=== PATIENT | male | born 1995 | race Caucasian/White ===

== ENCOUNTER 2022-03-03 09:11 | Inpatient (IN) | payer BC ==
[2022-03-03] MEDS ORDERED: Levofloxacin 500 mg/D5W 100 ml Premix Bag ONE (09:21)
[2022-03-03 09:36] LABS: #Basophils 0.2 thou/uL (0.0-0.2); #Eosinphils 0.7 thou/uL (0.0-0.7); #Lymphocytes 5.1 thou/uL (1.20-3.40); #Monocytes 1.3 thou/uL (0.11-0.59); %Basophils 1.6 % (0.0-1.0); %Eosinophils 4.9 % (0.0-10.0); %Lymphocytes 35.6 % (21.0-51.0); %Neutrophils 48.8 % (42.0-75.0); Mean Corpuscular HGB CONC 33.4 g/dL (32.0-36.0); Mean Corpuscular Hemoglobin 30.8 pg (27.0-31.0); Mean Corpuscular Volume 92.2 fl (78.0-98.0); Mean Platelet Volume 8.5 fL (7.4-10.4); Platelet Count 231 thou/uL (130-400); RBC Distribution Width 11.9 % (11.5-14.5); Red Blood Cell (RBC) Count 4.54 mill/uL (4.70-6.10); White Blood Cell (WBC) Count 14.3 thou/uL (4.8-10.8)
[2022-03-03] MEDS ORDERED: Rocuronium Bromide 10 MG/ML (10ML VIAL) ONE (09:44)
[2022-03-03 10:04] LABS: ALT (SGPT) 14 U/L (8-55); AST (SGOT) 15 U/L (5-34); Alkaline Phosphatase 70 U/L (40-110); Anion Gap 12 mmol/L (10-20); BUN (Urea Nitrogen) 17 mg/dL (8.9-20.6); Bilirubin, Total 0.7 mg/dL (0.2-1.2); Calc. Creatinine Clearance 0 mL/min (70-130); Calcium 8.5 mg/dL (7.8-10.44); Carbon Dioxide 24 mmol/L (22-29); Chloride 107 mmol/L (98-107); Estimated GFR 122; Globulin 2.3 g/dL (2.4-3.5); Glucose 138 mg/dL (70-105); Potassium 3.3 mmol/L (3.5-5.1); Protein, Total 6.3 g/dL (6.0-8.3); Sodium 140 mmol/L (136-145)
[2022-03-03 10:08] LABS: Analyzer IN Cardio ER; Calcium, Ionized (arterial) 1.14 mmol/L (1.12-1.30); Carboxyhemoglobin (COHb) 2.5 gm% (0.0-3.0); Hemoglobin (Hb) 14.4 g/dL (14.0-18.0); O2 Tension (PaO2), arterial 166.8 mmHg (80.0-100.0); Puncture Site RRA; pH, Arterial 7.28 (7.35-7.45)
[2022-03-03] MEDS ORDERED: Ketamine 50 MG/ML (10ML VIAL) ONE (10:18)
[2022-03-03] MEDS ORDERED: Boostrix 0.5 ML (Tdap) VIAL (>/=7 yrs of age) ONE (10:20)
[2022-03-03] MEDS ORDERED: TETANUS, DIPHTHERIA TOX,ADULT (TDVAX) 0.5 ML VIAL IM ONE (10:23)
[2022-03-03] MEDS ORDERED: Dextrose 50% Abboject 50 ML SYRINGE SLOW IVP PRN (10:23)
[2022-03-03] MEDS ORDERED: Dextrose 5% in Water 1,000 ML IV PRN (10:23)
[2022-03-03] MEDS ORDERED: Insulin Regular 300 UNITS/3 ML VIAL SC PRN (10:23)
[2022-03-03] MEDS ORDERED: hydrALAZINE 20 MG/ML VIAL SLOW IVP PRN (10:23)
[2022-03-03] MEDS ORDERED: Ventilator Sedation Protocol FS PRN (10:30)
[2022-03-03] MEDS ORDERED: FENTANYL 50 MCG/ML 1 ML VIAL ONE (10:33)
[2022-03-03 10:56] LABS: Lactic Acid 1.2 mmol/L (0.5-2.2)
[2022-03-03 11:00] LABS: Magnesium 1.8 mg/dL (1.6-2.6); Phosphorus 4.5 mg/dL (2.3-4.7)
[2022-03-03] MEDS ORDERED: Propofol BOLUS 1,000 MG/100 ML VIAL IV PRN (11:00)
[2022-03-03] MEDS ORDERED: Morphine 4 MG/ML VIAL SLOW IVP PRN (11:00)
[2022-03-03] MEDS ORDERED: Fentanyl CADD 100 ML IV SCH (11:00)
[2022-03-03] MEDS ORDERED: Fentanyl BOLUS 250 ML IVPB PRN (11:00)
[2022-03-03 11:18] LABS: INR-International Normal Ratio 1.1; PTT 24.7 sec (22.9-36.1); Prothrombin Time 14.7 sec (12.0-14.7)
[2022-03-03] MEDS: Sodium Chloride 0.9% 1,000 ML IV SCH ×2 (11:20→20:31)
[2022-03-03] MEDS ORDERED: Electrolyte Replacement Protocol 1 EACH FS SCH (11:56)
[2022-03-03 12:03] LABS: Actual Bicarbonate (HCO3a) 21.7 mEq/L (22-28); Base Excess (BEa) -2.5 mEq/L (-2.0 to +3.0); CO2 Tension 35.6 mmHg (35.0-45.0); Calcium, Ionized (arterial) 1.11 mmol/L (1.12-1.30); Carboxyhemoglobin (COHb) 1.6 gm% (0.0-3.0); Hemoglobin (Hb) 13.1 g/dL (14.0-18.0); O2 Tension (PaO2), arterial 92.9 mmHg (80.0-100.0); Potassium - ABG Lab 3.95 mmol/L (3.70-5.30)
[2022-03-03 12:04] LABS: Puncture Site RRA
[2022-03-03] MEDS ORDERED: Magnesium 2 GM/50 ML(in water) 2 GM in Premix Bag 1 BAG IVPB SCH (12:15)
[2022-03-03] MEDS: Propofol 1,000 MG/100 ML VIAL IV PRN ×3 (12:39→20:57)
[2022-03-03] MEDS ORDERED: Calcium Chloride 13.6 MEQ in Sodium Chloride 0.9% 100 ML IVPB SCH (13:30)
[2022-03-03] MEDS: Potassium Chloride 20 MEQ in Premix Bag 1 BAG IVPB SCH ×2 (13:35→14:45)
[2022-03-03] MEDS: Clindamycin/D5W 900 MG in Premix Bag 1 BAG IVPB SCH ×2 (13:36→20:58)
[2022-03-03] MEDS ORDERED: Iopamidol-370 76% 500 ML 1 ML ONE (13:52)
[2022-03-03 18:07] LABS: Bacteria/HPF None Seen HPF (None Seen); Bilirubin Negative (Negative); Blood, Urine Negative (Negative); Clarity Clear (Clear); Glucose, Urine (Dipstick) Normal (Negative); Ketone, Urine Negative (Negative); Leukocyte Negative Leu/uL (Negative); Nitrite Negative (Negative); Protein, Urine (Dipstick) Negative (Neg-Trace); RBC/HPF 0-3 HPF (0-3); Squamous Epithelial None Seen HPF (0-3); Urobilinogen Normal mg/dL (Less than 2); WBC/HPF 0-3 HPF (0-3); pH, Urine 6.5 (5.0-9.0)
[2022-03-03 18:09] LABS: Specific Gravity, Urine 1.048 (1.002-1.036)
[2022-03-03 18:10] LABS: Urine Culture Reflex No No
[2022-03-03 18:12] LABS: Amphetamine Detected (NotDetected); Barbiturates Screen Not Detected (NotDetected); Benzodiazepine Screen Detected (NotDetected); Cocaine Metabolite Screen Detected (NotDetected); Methadone Not Detected (NotDetected); Methamphetamine Detected (NotDetected); Opiate Screen Detected (NotDetected); Oxycodone Screen Not Detected (NotDetected); Phencyclidine (PCP) Not Detected (NotDetected); THC/Cannabinoid Screen Detected (NotDetected); Tricyclic Screen Not Detected (NotDetected)
[2022-03-03] MEDS: Famotidine/PF 20 mg/2ml Vial SLOW IVP SCH (20:58)
[2022-03-03 21:17] LABS: Potassium 3.8 mmol/L (3.5-5.1)
[2022-03-04] MEDS: Midazolam HCl 2 mg/2 ml Vial SLOW IVP PRN ×8 (00:43→18:58)
[2022-03-04] MEDS ORDERED: Sterile Water 10 ML ONE (01:00)
[2022-03-04] MEDS: Vecuronium 10 MG VIAL IVP PRN ×12 (01:01→23:54)
[2022-03-04] MEDS: Propofol 1,000 MG/100 ML VIAL IV PRN ×4 (02:45→21:48)
[2022-03-04] MEDS: Fentanyl CADD 100 ML IV SCH ×2 (03:13→17:35)
[2022-03-04] MEDS: Sodium Chloride 0.9% 1,000 ML IV SCH ×3 (03:17→20:41)
[2022-03-04 04:35] LABS: Anion Gap 14 mmol/L (10-20); BUN (Urea Nitrogen) 12 mg/dL (8.9-20.6); Calc. Creatinine Clearance 164 mL/min (70-130); Carbon Dioxide 18 mmol/L (22-29); Chloride 110 mmol/L (98-107); Estimated GFR 125; Glucose 72 mg/dL (70-105); Phosphorus 3.4 mg/dL (2.3-4.7); Potassium 4.5 mmol/L (3.5-5.1); Sodium 137 mmol/L (136-145)
[2022-03-04 04:38] LABS: #Basophils 0.1 thou/uL (0.0-0.2); #Eosinphils 0.3 thou/uL (0.0-0.7); #Lymphocytes 2.2 thou/uL (1.20-3.40); #Monocytes 1.1 thou/uL (0.11-0.59); #Neutrophils 4.5 thou/uL (1.40-6.50); %Basophils 0.8 % (0.0-1.0); %Eosinophils 3.6 % (0.0-10.0); %Lymphocytes 27.1 % (21.0-51.0); %Neutrophils 55.5 % (42.0-75.0); Hemoglobin 12.8 g/dL (14.0-18.0); Mean Corpuscular HGB CONC 31.5 g/dL (32.0-36.0); Mean Corpuscular Hemoglobin 29.7 pg (27.0-31.0); Mean Corpuscular Volume 94.3 fl (78.0-98.0); Mean Platelet Volume 9.7 fL (7.4-10.4); Platelet Count 120 thou/uL (130-400); White Blood Cell (WBC) Count 8.1 thou/uL (4.8-10.8)
[2022-03-04] MEDS ORDERED: Dexamethasone 4 mg/ml Vial SLOW IVP SCH (07:15)
[2022-03-04] MEDS: Clindamycin/D5W 900 MG in Premix Bag 1 BAG IVPB SCH ×3 (07:15→21:12)
[2022-03-04] MEDS: Famotidine/PF 20 mg/2ml Vial SLOW IVP SCH ×2 (07:16→20:38)
[2022-03-04 07:54] LABS: Actual Bicarbonate (HCO3a) 21.8 mEq/L (22-28); Base Excess (BEa) -0.8 mEq/L (-2.0 to +3.0); CO2 Tension 30.1 mmHg (35.0-45.0); Calcium, Ionized (arterial) 1.12 mmol/L (1.12-1.30); Hemoglobin (Hb) 12.3 g/dL (14.0-18.0); O2 Tension (PaO2), arterial 108.1 mmHg (80.0-100.0); Potassium - ABG Lab 3.57 mmol/L (3.70-5.30); pH, Arterial 7.48 (7.35-7.45)
[2022-03-04 07:58] LABS: ALV-art Gradient 139.475 mmHg (0-20); Puncture Site RRA
[2022-03-04] MEDS ORDERED: Magnesium 2 GM/50 ML(in water) 2 GM in Premix Bag 1 BAG IVPB SCH (08:00)
[2022-03-05] MEDS: Midazolam HCl 2 mg/2 ml Vial SLOW IVP PRN ×11 (01:24→23:58)
[2022-03-05] MEDS: Vecuronium 10 MG VIAL IVP PRN ×13 (01:25→21:30)
[2022-03-05] MEDS: Propofol 1,000 MG/100 ML VIAL IV PRN ×4 (03:03→14:15)
[2022-03-05 04:22] LABS: #Eosinphils 0.1 thou/uL (0.0-0.7); #Lymphocytes 1.6 thou/uL (1.20-3.40); #Monocytes 1.3 thou/uL (0.11-0.59); #Neutrophils 6.2 thou/uL (1.40-6.50); %Basophils 0.3 % (0.0-1.0); %Eosinophils 0.8 % (0.0-10.0); %Lymphocytes 16.9 % (21.0-51.0); %Monocytes 14.7 % (0.0-10.0); %Neutrophils 67.4 % (42.0-75.0); Hemoglobin 12.5 g/dL (14.0-18.0); Mean Corpuscular HGB CONC 32.1 g/dL (32.0-36.0); Mean Corpuscular Hemoglobin 30.2 pg (27.0-31.0); Mean Corpuscular Volume 94.1 fl (78.0-98.0); Mean Platelet Volume 9.3 fL (7.4-10.4); Platelet Count 151 thou/uL (130-400); Red Blood Cell (RBC) Count 4.14 mill/uL (4.70-6.10); White Blood Cell (WBC) Count 9.1 thou/uL (4.8-10.8)
[2022-03-05] MEDS: Sodium Chloride 0.9% 1,000 ML IV SCH ×3 (04:23→21:46)
[2022-03-05 04:40] LABS: Anion Gap 15 mmol/L (10-20); BUN (Urea Nitrogen) 8 mg/dL (8.9-20.6); Calc. Creatinine Clearance 182 mL/min (70-130); Calcium 8.7 mg/dL (7.8-10.44); Carbon Dioxide 19 mmol/L (22-29); Chloride 110 mmol/L (98-107); Estimated GFR 129; Glucose 73 mg/dL (70-105); Magnesium 2.1 mg/dL (1.6-2.6); Potassium 4.6 mmol/L (3.5-5.1); Sodium 139 mmol/L (136-145)
[2022-03-05] MEDS: Clindamycin/D5W 900 MG in Premix Bag 1 BAG IVPB SCH ×3 (06:21→22:54)
[2022-03-05] MEDS ORDERED: Fentanyl CADD 100 ML ONE ×2 (07:22→22:38)
[2022-03-05] MEDS ORDERED: Sterile Water 0 ML ONE (07:26)
[2022-03-05] MEDS: Fentanyl CADD 100 ML IV SCH ×2 (07:36→22:43)
[2022-03-05] MEDS: Famotidine/PF 20 mg/2ml Vial SLOW IVP SCH ×2 (08:59→19:56)
[2022-03-05] MEDS ORDERED: fentaNYL PF 100 MCG/2 ML SYRINGE ONE (15:40)
[2022-03-05] MEDS ORDERED: Chlorhexidine Gluconate 15 ML UDCUP SSP ONE ×2 (16:14→17:48)
[2022-03-05] MEDS ORDERED: Bupivacaine HCl 0.5%/Epinephrine 1:200,000/PF 30 ml Vial ONE (16:14)
[2022-03-05] MEDS ORDERED: Lidocaine 2% PF 5 ML VIAL ONE (16:14)
[2022-03-05] MEDS ORDERED: Rocuronium Bromide 10 MG/ML (10ML VIAL) ONE (16:25)
[2022-03-05] MEDS ORDERED: PROPOFOL 200 MG/20 ML VIAL ONE (16:25)
[2022-03-05] MEDS ORDERED: PHENYLEPHRINE-NS 100 MCG/ML 10 ML SYRINGE ONE (16:25)
[2022-03-05] MEDS ORDERED: Bacitracin Zinc Ointment 30 gm TUBE ONE (17:09)
[2022-03-05] MEDS ORDERED: Midazolam HCl 2 mg/2 ml Vial ONE (17:52)
[2022-03-05] MEDS ORDERED: Midazolam HCl 2 mg/2 ml Vial SLOW IVP SCH (22:30)
[2022-03-05 23:25] LABS: Actual Bicarbonate (HCO3a) 24.5 mEq/L (22-28); Base Excess (BEa) -0.7 mEq/L (-2.0 to +3.0); CO2 Tension 42.4 mmHg (35.0-45.0); Calcium, Ionized (arterial) 1.12 mmol/L (1.12-1.30); Carboxyhemoglobin (COHb) 0.4 gm% (0.0-3.0); Hemoglobin (Hb) 13.1 g/dL (14.0-18.0); O2 Tension (PaO2), arterial 62.7 mmHg (80.0-100.0); Potassium - ABG Lab 3.59 mmol/L (3.70-5.30); pH, Arterial 7.38 (7.35-7.45)
[2022-03-05 23:28] LABS: Puncture Site RRA
[2022-03-05 23:32] LABS: #Monocytes 1.2 thou/uL (0.11-0.59); #Neutrophils 9.8 thou/uL (1.40-6.50); %Basophils 0.1 % (0.0-1.0); %Eosinophils 0.4 % (0.0-10.0); %Monocytes 9.7 % (0.0-10.0); %Neutrophils 81.8 % (42.0-75.0); Hemoglobin 12.8 g/dL (14.0-18.0); Mean Corpuscular HGB CONC 32.5 g/dL (32.0-36.0); Mean Corpuscular Hemoglobin 30.5 pg (27.0-31.0); Mean Platelet Volume 8.4 fL (7.4-10.4); Platelet Count 154 thou/uL (130-400); RBC Distribution Width 11.8 % (11.5-14.5); Red Blood Cell (RBC) Count 4.21 mill/uL (4.70-6.10)
[2022-03-05 23:44] LABS: Lactic Acid 3.1 mmol/L (0.5-2.2)
[2022-03-05 23:47] LABS: Anion Gap 16 mmol/L (10-20); BUN (Urea Nitrogen) 6 mg/dL (8.9-20.6); Calc. Creatinine Clearance 158 mL/min (70-130); Calcium 8.4 mg/dL (7.8-10.44); Carbon Dioxide 20 mmol/L (22-29); Chloride 107 mmol/L (98-107); Estimated GFR 127; Glucose 104 mg/dL (70-105); Magnesium 1.6 mg/dL (1.6-2.6); Potassium 3.7 mmol/L (3.5-5.1); Sodium 139 mmol/L (136-145)
[2022-03-06] MEDS: Ondansetron PF 4 MG/2 ML Vial IVP PRN (00:08)
[2022-03-06] MEDS ORDERED: Magnesium 2 GM/50 ML(in water) 2 GM in Premix Bag 1 BAG IVPB SCH (00:30)
[2022-03-06] MEDS ORDERED: Lactated Ringer's 1,000 ML IV SCH (00:30)
[2022-03-06] MEDS: Midazolam HCl 2 mg/2 ml Vial SLOW IVP PRN ×4 (00:46→17:25)
[2022-03-06] MEDS: Propofol 1,000 MG/100 ML VIAL IV PRN ×3 (03:41→13:23)
[2022-03-06 04:01] LABS: #Eosinphils 0.1 thou/uL (0.0-0.7); #Lymphocytes 1.1 thou/uL (1.20-3.40); #Monocytes 0.7 thou/uL (0.11-0.59); #Neutrophils 7.9 thou/uL (1.40-6.50); %Basophils 0.4 % (0.0-1.0); %Eosinophils 0.7 % (0.0-10.0); %Monocytes 7.5 % (0.0-10.0); %Neutrophils 80.4 % (42.0-75.0); Hemoglobin 11.3 g/dL (14.0-18.0); Mean Corpuscular HGB CONC 33.5 g/dL (32.0-36.0); Mean Corpuscular Hemoglobin 31.6 pg (27.0-31.0); Mean Corpuscular Volume 94.3 fl (78.0-98.0); Platelet Count 152 thou/uL (130-400); RBC Distribution Width 11.5 % (11.5-14.5); Red Blood Cell (RBC) Count 3.58 mill/uL (4.70-6.10); White Blood Cell (WBC) Count 9.8 thou/uL (4.8-10.8)
[2022-03-06 04:20] LABS: Phosphorus 1.8 mg/dL (2.3-4.7)
[2022-03-06 04:21] LABS: Anion Gap 9 mmol/L (10-20); BUN (Urea Nitrogen) 5 mg/dL (8.9-20.6); Calc. Creatinine Clearance 158 mL/min (70-130); Calcium 8.2 mg/dL (7.8-10.44); Carbon Dioxide 26 mmol/L (22-29); Chloride 106 mmol/L (98-107); Estimated GFR 127; Glucose 98 mg/dL (70-105); Magnesium 1.9 mg/dL (1.6-2.6); Potassium 3.5 mmol/L (3.5-5.1); Sodium 137 mmol/L (136-145)
[2022-03-06] MEDS: PHOS-NAK 1 PKT PACK PO SCH ×2 (05:10→09:48)
[2022-03-06] MEDS: Sodium Chloride 0.9% 1,000 ML IV SCH ×2 (05:34→18:08)
[2022-03-06] MEDS ORDERED: Fentanyl CADD 100 ML ONE ×2 (05:38→16:00)
[2022-03-06] MEDS: Clindamycin/D5W 900 MG in Premix Bag 1 BAG IVPB SCH (05:46)
[2022-03-06] MEDS: Fentanyl CADD 100 ML IV SCH ×2 (05:52→16:06)
[2022-03-06 07:51] LABS: Actual Bicarbonate (HCO3a) 23.9 mEq/L (22-28); Base Excess (BEa) -0.8 mEq/L (-2.0 to +3.0); CO2 Tension 39.6 mmHg (35.0-45.0); Calcium, Ionized (arterial) 1.11 mmol/L (1.12-1.30); Carboxyhemoglobin (COHb) 0.3 gm% (0.0-3.0); Hemoglobin (Hb) 11.4 g/dL (14.0-18.0); O2 Tension (PaO2), arterial 107.4 mmHg (80.0-100.0); Potassium - ABG Lab 3.71 mmol/L (3.70-5.30)
[2022-03-06 08:12] LABS: Puncture Site LRA
[2022-03-06] MEDS: Famotidine/PF 20 mg/2ml Vial SLOW IVP SCH ×2 (09:40→21:48)
[2022-03-06] MEDS: Enoxaparin Sodium 40 MG/0.4 ML SYRINGE SC SCH (09:46)
[2022-03-06] MEDS ORDERED: diphenhydrAMINE 50 MG/ML VIAL IM PRN (09:49)
[2022-03-06] MEDS: Ampicillin/Sulbactam 3 GM in Sodium Chloride 0.9% 100 ML IVPB SCH ×3 (10:23→21:48)
[2022-03-06] MEDS: Potassium Chloride 20 MEQ in Premix Bag 1 BAG IVPB SCH ×2 (13:02→15:11)
[2022-03-06] MEDS: Acetaminophen 500 MG TAB PO SCH ×3 (13:10→21:43)
[2022-03-06] MEDS: Ibuprofen 200 MG TAB PO SCH ×3 (13:13→22:10)
[2022-03-06 16:42] LABS: Potassium 3.9 mmol/L (3.5-5.1)
[2022-03-06] MEDS ORDERED: Midazolam In 0.9 % NaCl/PF 100 ML IVPB SCH (19:15)
[2022-03-06] MEDS ORDERED: Mirtazapine 15 MG TAB PER TUBE SCH (21:00)
[2022-03-06] MEDS ORDERED: Venlafaxine HCl XR 150 MG CAP PO SCH (21:00)
[2022-03-06] MEDS: lamoTRIgine 25 MG TAB PO SCH (21:46)
[2022-03-06] MEDS ORDERED: Sodium Chloride 0.9% 1,000 ML IV SCH (22:45)
[2022-03-07] MEDS ORDERED: Fentanyl CADD 100 ML ONE (01:14)
[2022-03-07] MEDS: Fentanyl CADD 100 ML IV SCH ×3 (01:18→22:07)
[2022-03-07 04:17] LABS: #Eosinphils 0.3 thou/uL (0.0-0.7); #Lymphocytes 1.1 thou/uL (1.20-3.40); #Monocytes 0.5 thou/uL (0.11-0.59); #Neutrophils 3.9 thou/uL (1.40-6.50); %Basophils 0.6 % (0.0-1.0); %Eosinophils 5.7 % (0.0-10.0); %Lymphocytes 18.3 % (21.0-51.0); %Monocytes 8.3 % (0.0-10.0); %Neutrophils 67.1 % (42.0-75.0); Hemoglobin 9.8 g/dL (14.0-18.0); Mean Corpuscular HGB CONC 32.5 g/dL (32.0-36.0); Mean Corpuscular Hemoglobin 30.4 pg (27.0-31.0); Mean Corpuscular Volume 93.4 fl (78.0-98.0); Mean Platelet Volume 8.8 fL (7.4-10.4); Platelet Count 116 thou/uL (130-400); RBC Distribution Width 11.6 % (11.5-14.5); Red Blood Cell (RBC) Count 3.22 mill/uL (4.70-6.10); White Blood Cell (WBC) Count 5.8 thou/uL (4.8-10.8)
[2022-03-07] MEDS: Acetaminophen 500 MG TAB PO SCH ×3 (04:17→17:35)
[2022-03-07] MEDS: Ibuprofen 200 MG TAB PO SCH ×4 (04:17→21:23)
[2022-03-07] MEDS: Ampicillin/Sulbactam 3 GM in Sodium Chloride 0.9% 100 ML IVPB SCH ×4 (04:18→21:23)
[2022-03-07 04:29] LABS: Anion Gap 10 mmol/L (10-20); BUN (Urea Nitrogen) 6 mg/dL (8.9-20.6); Calc. Creatinine Clearance 0 mL/min (70-130); Carbon Dioxide 24 mmol/L (22-29); Chloride 112 mmol/L (98-107); Estimated GFR 131; Glucose 122 mg/dL (70-105); Magnesium 1.9 mg/dL (1.6-2.6); Potassium 3.7 mmol/L (3.5-5.1); Sodium 142 mmol/L (136-145)
[2022-03-07 04:32] LABS: Phosphorus 3.8 mg/dL (2.3-4.7)
[2022-03-07 07:04] LABS: Actual Bicarbonate (HCO3a) 25.7 mEq/L (22-28); Base Excess (BEa) -0.3 mEq/L (-2.0 to +3.0); CO2 Tension 48.6 mmHg (35.0-45.0); Calcium, Ionized (arterial) 1.13 mmol/L (1.12-1.30); Carboxyhemoglobin (COHb) 0.3 gm% (0.0-3.0); Hemoglobin (Hb) 9.5 g/dL (14.0-18.0); pH, Arterial 7.34 (7.35-7.45)
[2022-03-07] MEDS ORDERED: Acetaminophen/Codeine 30-300mg Tablet PO SCH (07:30)
[2022-03-07 07:51] LABS: Puncture Site LRA
[2022-03-07] MEDS ORDERED: Magnesium 2 GM/50 ML(in water) 2 GM in Premix Bag 1 BAG IVPB SCH (08:00)
[2022-03-07] MEDS: Famotidine/PF 20 mg/2ml Vial SLOW IVP SCH ×2 (09:26→21:03)
[2022-03-07] MEDS: lamoTRIgine 25 MG TAB PO SCH ×2 (09:26→21:04)
[2022-03-07] MEDS: Venlafaxine 75 MG TAB PO SCH ×2 (09:27→21:03)
[2022-03-07] MEDS: Enoxaparin Sodium 40 MG/0.4 ML SYRINGE SC SCH (10:05)
[2022-03-07] MEDS ORDERED: Cyclobenzaprine 10 MG TAB PO PRN (10:06)
[2022-03-07] MEDS ORDERED: traMADol HCl 50 MG TAB PO SCH (10:15)
[2022-03-07] MEDS: traMADol HCl 50 MG TAB PO SCH ×2 (11:40→17:35)
[2022-03-07] MEDS: Propofol 1,000 MG/100 ML VIAL IV PRN ×2 (11:41→21:08)
[2022-03-07] MEDS ORDERED: Acetaminophen 325 MG TAB PO SCH (12:00)
[2022-03-07] MEDS: Gabapentin 300 MG CAP PO SCH ×2 (15:51→21:03)
[2022-03-07] MEDS: Senokot S 8.6-50 MG TAB PO SCH (21:03)
[2022-03-07] MEDS: Mirtazapine 15 MG Soltab PO SCH (21:23)
[2022-03-08] MEDS: traMADol HCl 50 MG TAB PO SCH ×5 (00:08→23:28)
[2022-03-08] MEDS: Acetaminophen 500 MG TAB PO SCH ×3 (00:09→12:05)
[2022-03-08] MEDS: Dexmedetomidine 1,000 MCG in Sodium Chloride 0.9% 250 ML 240 ML IVPB SCH ×3 (03:24→21:52)
[2022-03-08] MEDS: Ibuprofen 200 MG TAB PO SCH ×4 (03:25→21:45)
[2022-03-08] MEDS: Ampicillin/Sulbactam 3 GM in Sodium Chloride 0.9% 100 ML IVPB SCH ×4 (03:25→21:49)
[2022-03-08 04:03] LABS: #Eosinphils 0.4 thou/uL (0.0-0.7); #Monocytes 0.6 thou/uL (0.11-0.59); #Neutrophils 3.6 thou/uL (1.40-6.50); %Basophils 0.6 % (0.0-1.0); %Eosinophils 6.8 % (0.0-10.0); %Lymphocytes 17.6 % (21.0-51.0); %Monocytes 10.8 % (0.0-10.0); %Neutrophils 64.3 % (42.0-75.0); Hemoglobin 10.5 g/dL (14.0-18.0); Mean Corpuscular Hemoglobin 30.8 pg (27.0-31.0); Mean Corpuscular Volume 93.5 fl (78.0-98.0); Mean Platelet Volume 8.6 fL (7.4-10.4); Platelet Count 143 thou/uL (130-400); RBC Distribution Width 11.6 % (11.5-14.5); White Blood Cell (WBC) Count 5.6 thou/uL (4.8-10.8)
[2022-03-08 04:26] LABS: Anion Gap 11 mmol/L (10-20); BUN (Urea Nitrogen) 9 mg/dL (8.9-20.6); Calc. Creatinine Clearance 194 mL/min (70-130); Calcium 8.4 mg/dL (7.8-10.44); Carbon Dioxide 23 mmol/L (22-29); Chloride 111 mmol/L (98-107); Estimated GFR 131; Glucose 137 mg/dL (70-105); Potassium 3.6 mmol/L (3.5-5.1); Sodium 141 mmol/L (136-145)
[2022-03-08] MEDS: Propofol 1,000 MG/100 ML VIAL IV PRN (05:09)
[2022-03-08] MEDS ORDERED: Furosemide 20 MG/2 ML VIAL SLOW IVP SCH (07:30)
[2022-03-08 07:39] LABS: Actual Bicarbonate (HCO3a) 24.4 mEq/L (22-28); Base Excess (BEa) -1.4 mEq/L (-2.0 to +3.0); CO2 Tension 45.6 mmHg (35.0-45.0); Calcium, Ionized (arterial) 1.14 mmol/L (1.12-1.30); Carboxyhemoglobin (COHb) 0.3 gm% (0.0-3.0); Hemoglobin (Hb) 10.9 g/dL (14.0-18.0); O2 Tension (PaO2), arterial 96.4 mmHg (80.0-100.0); Potassium - ABG Lab 3.55 mmol/L (3.70-5.30); pH, Arterial 7.35 (7.35-7.45)
[2022-03-08 07:52] LABS: Puncture Site LRA
[2022-03-08] MEDS ORDERED: Zolpidem Tartrate 5 MG TAB PO PRN (08:24)
[2022-03-08] MEDS ORDERED: HYDROmorphone 10 mg/100 ml CADD IVPB PRN (08:24)
[2022-03-08] MEDS ORDERED: diphenhydrAMINE 50 MG/ML VIAL IVP PRN (08:24)
[2022-03-08] MEDS ORDERED: diphenhydrAMINE 25 MG CAP PO PRN (08:24)
[2022-03-08] MEDS ORDERED: diphenhydrAMINE 50 MG/ML VIAL IM PRN (08:24)
[2022-03-08] MEDS ORDERED: Naloxone HCl 0.4 mg/ml Vial IV PRN (08:24)
[2022-03-08] MEDS ORDERED: Promethazine HCl 25 MG/ML VIAL IM PRN (08:24)
[2022-03-08] MEDS ORDERED: Ondansetron PF 4 MG/2 ML Vial IVP PRN (08:24)
[2022-03-08] MEDS ORDERED: Communication Order-Pharmacy FS SCH (08:30)
[2022-03-08] MEDS ORDERED: Fentanyl CADD 100 ML ONE (09:20)
[2022-03-08] MEDS: Venlafaxine 75 MG TAB PO SCH ×2 (09:25→21:45)
[2022-03-08] MEDS: Senokot S 8.6-50 MG TAB PO SCH ×2 (09:25→21:45)
[2022-03-08] MEDS: lamoTRIgine 25 MG TAB PO SCH ×2 (09:25→21:45)
[2022-03-08] MEDS: Bacitracin 1 PK TOP SCH ×3 (09:25→21:51)
[2022-03-08] MEDS: Gabapentin 300 MG CAP PO SCH ×3 (09:26→21:45)
[2022-03-08] MEDS: Enoxaparin Sodium 40 MG/0.4 ML SYRINGE SC SCH (09:27)
[2022-03-08] MEDS: Metoclopramide HCl 10 MG/2 ML VIAL IVP SCH ×3 (09:27→23:30)
[2022-03-08] MEDS: Fentanyl CADD 100 ML IV SCH (09:28)
[2022-03-08] MEDS: Famotidine 20 MG TAB PER TUBE SCH ×2 (10:52→21:45)
[2022-03-08] MEDS: OLANZapine 5 MG TAB PO SCH (12:09)
[2022-03-08] MEDS: ALPRAZolam 1 MG TAB PO PRN (12:09)
[2022-03-08] MEDS: fentaNYL 100 mcg/hour Patch TD SCH (12:30)
[2022-03-08] MEDS ORDERED: Magnesium 2 GM/50 ML(in water) 2 GM in Premix Bag 1 BAG IVPB SCH ×2 (13:15→23:00)
[2022-03-08] MEDS ORDERED: Potassium Chloride 40 MEQ in Premix Bag 1 BAG IVPB SCH (13:15)
[2022-03-08] MEDS ORDERED: Potassium Chloride 40 MEQ, Magnesium Sulfate 2 GM in Sodium Chloride 0.9% 250 ML 250 ML IVPB SCH (13:30)
[2022-03-08] MEDS ORDERED: Clindamycin/D5W 900 MG in Premix Bag 1 BAG IVPB SCH (14:00)
[2022-03-08] MEDS: Polyethylene Glycol 3350 17 GM Packet PO SCH (17:25)
[2022-03-08] MEDS: Acetaminophen 650 MG/20.3 ML UDCUP PER TUBE SCH ×2 (18:24→23:27)
[2022-03-08 20:02] LABS: Anion Gap 11 mmol/L (10-20); BUN (Urea Nitrogen) 12 mg/dL (8.9-20.6); Calc. Creatinine Clearance 195 mL/min (70-130); Calcium 8.2 mg/dL (7.8-10.44); Carbon Dioxide 24 mmol/L (22-29); Chloride 111 mmol/L (98-107); Estimated GFR 132; Glucose 97 mg/dL (70-105); Potassium 3.8 mmol/L (3.5-5.1); Sodium 142 mmol/L (136-145)
[2022-03-08] MEDS ORDERED: Potassium Chloride 20 MEQ in Premix Bag 1 BAG IVPB SCH (21:00)
[2022-03-08] MEDS: Mirtazapine 15 MG Soltab PO SCH (21:45)
[2022-03-09] MEDS: Ampicillin/Sulbactam 3 GM in Sodium Chloride 0.9% 100 ML IVPB SCH ×4 (04:20→22:11)
[2022-03-09 04:21] LABS: #Eosinphils 0.4 thou/uL (0.0-0.7); #Monocytes 0.7 thou/uL (0.11-0.59); %Basophils 0.2 % (0.0-1.0); %Eosinophils 7.3 % (0.0-10.0); %Lymphocytes 16.2 % (21.0-51.0); %Monocytes 11.5 % (0.0-10.0); %Neutrophils 64.9 % (42.0-75.0); Hemoglobin 10.5 g/dL (14.0-18.0); Mean Corpuscular HGB CONC 33.1 g/dL (32.0-36.0); Mean Corpuscular Volume 93.7 fl (78.0-98.0); Platelet Count 164 thou/uL (130-400); RBC Distribution Width 11.5 % (11.5-14.5); White Blood Cell (WBC) Count 6.2 thou/uL (4.8-10.8)
[2022-03-09] MEDS: Ibuprofen 200 MG TAB PO SCH ×4 (04:21→22:12)
[2022-03-09 04:40] LABS: Anion Gap 11 mmol/L (10-20); BUN (Urea Nitrogen) 14 mg/dL (8.9-20.6); Calc. Creatinine Clearance 189 mL/min (70-130); Calcium 8.4 mg/dL (7.8-10.44); Carbon Dioxide 24 mmol/L (22-29); Chloride 110 mmol/L (98-107); Estimated GFR 131; Glucose 118 mg/dL (70-105); Potassium 3.9 mmol/L (3.5-5.1); Sodium 141 mmol/L (136-145)
[2022-03-09] MEDS: Dexmedetomidine 1,000 MCG in Sodium Chloride 0.9% 250 ML 240 ML IVPB SCH (05:28)
[2022-03-09] MEDS: traMADol HCl 50 MG TAB PO SCH ×4 (05:28→23:06)
[2022-03-09] MEDS: Acetaminophen 650 MG/20.3 ML UDCUP PER TUBE SCH ×4 (08:32→23:05)
[2022-03-09] MEDS: lamoTRIgine 25 MG TAB PO SCH ×2 (08:35→20:28)
[2022-03-09] MEDS: Metoclopramide HCl 10 MG/2 ML VIAL IVP SCH ×2 (08:35→14:57)
[2022-03-09] MEDS: Enoxaparin Sodium 40 MG/0.4 ML SYRINGE SC SCH (08:35)
[2022-03-09] MEDS: Famotidine 20 MG TAB PER TUBE SCH ×2 (08:35→20:28)
[2022-03-09] MEDS: Senokot S 8.6-50 MG TAB PO SCH ×2 (08:35→20:28)
[2022-03-09] MEDS: Venlafaxine 75 MG TAB PO SCH ×2 (08:35→20:28)
[2022-03-09] MEDS: Polyethylene Glycol 3350 17 GM Packet PO SCH (08:36)
[2022-03-09] MEDS: Bacitracin 1 PK TOP SCH ×3 (08:37→20:29)
[2022-03-09] MEDS: Gabapentin 300 MG CAP PO SCH ×3 (08:37→20:27)
[2022-03-09] MEDS ORDERED: Furosemide 20 MG/2 ML VIAL SLOW IVP SCH ×2 (09:00→16:15)
[2022-03-09] MEDS: OLANZapine 5 MG TAB PO SCH (10:13)
[2022-03-09] MEDS: ALPRAZolam 1 MG TAB PO PRN ×2 (10:51→22:11)
[2022-03-09] MEDS ORDERED: FENTANYL 50 MCG/ML 1 ML VIAL SLOW IVP SCH (11:00)
[2022-03-09] MEDS ORDERED: Fentanyl 100 MCG/2 ML VIAL SLOW IVP SCH (11:00)
[2022-03-09] MEDS ORDERED: cloNIDine 0.1 MG TAB PO SCH (12:00)
[2022-03-09] MEDS: cloNIDine 0.1 MG TAB PO SCH ×2 (17:20→23:05)
[2022-03-09] MEDS: Mirtazapine 15 MG Soltab PO SCH (20:30)
[2022-03-10] MEDS: Metoclopramide HCl 10 MG/2 ML VIAL IVP SCH ×3 (01:08→15:19)
[2022-03-10 04:07] LABS: #Basophils 0.1 thou/uL (0.0-0.2); #Eosinphils 0.3 thou/uL (0.0-0.7); #Lymphocytes 1.3 thou/uL (1.20-3.40); #Monocytes 1.1 thou/uL (0.11-0.59); #Neutrophils 5.3 thou/uL (1.40-6.50); %Basophils 0.6 % (0.0-1.0); %Lymphocytes 16.2 % (21.0-51.0); %Monocytes 13.4 % (0.0-10.0); %Neutrophils 65.7 % (42.0-75.0); Hemoglobin 11.2 g/dL (14.0-18.0); Mean Corpuscular HGB CONC 32.9 g/dL (32.0-36.0); Mean Corpuscular Hemoglobin 30.3 pg (27.0-31.0); Mean Corpuscular Volume 92.1 fl (78.0-98.0); Mean Platelet Volume 7.5 fL (7.4-10.4); Platelet Count 233 thou/uL (130-400); RBC Distribution Width 11.7 % (11.5-14.5); Red Blood Cell (RBC) Count 3.71 mill/uL (4.70-6.10); White Blood Cell (WBC) Count 8.1 thou/uL (4.8-10.8)
[2022-03-10] MEDS: Ibuprofen 200 MG TAB PO SCH ×4 (04:13→22:37)
[2022-03-10] MEDS: Ampicillin/Sulbactam 3 GM in Sodium Chloride 0.9% 100 ML IVPB SCH ×4 (04:16→22:37)
[2022-03-10 04:59] LABS: Anion Gap 14 mmol/L (10-20); BUN (Urea Nitrogen) 14 mg/dL (8.9-20.6); Calc. Creatinine Clearance 173 mL/min (70-130); Calcium 9.3 mg/dL (7.8-10.44); Carbon Dioxide 25 mmol/L (22-29); Chloride 104 mmol/L (98-107); Estimated GFR 127; Glucose 110 mg/dL (70-105); Magnesium 1.9 mg/dL (1.6-2.6); Phosphorus 5.1 mg/dL (2.3-4.7); Potassium 3.7 mmol/L (3.5-5.1); Sodium 139 mmol/L (136-145)
[2022-03-10] MEDS: traMADol HCl 50 MG TAB PO SCH ×5 (06:44→23:57)
[2022-03-10] MEDS: Acetaminophen 650 MG/20.3 ML UDCUP PER TUBE SCH ×4 (06:44→23:57)
[2022-03-10] MEDS: cloNIDine 0.1 MG TAB PO SCH ×5 (06:45→23:57)
[2022-03-10] MEDS ORDERED: Magnesium 2 GM/50 ML(in water) 2 GM in Premix Bag 1 BAG IVPB SCH (08:00)
[2022-03-10] MEDS: ALPRAZolam 1 MG TAB PO PRN ×2 (08:32→16:32)
[2022-03-10] MEDS: Bacitracin 1 PK TOP SCH ×3 (09:35→20:29)
[2022-03-10] MEDS: Enoxaparin Sodium 40 MG/0.4 ML SYRINGE SC SCH (09:35)
[2022-03-10] MEDS: Senokot S 8.6-50 MG TAB PO SCH ×2 (09:35→20:29)
[2022-03-10] MEDS: Polyethylene Glycol 3350 17 GM Packet PO SCH (09:35)
[2022-03-10] MEDS: Venlafaxine 75 MG TAB PO SCH ×2 (09:36→20:29)
[2022-03-10] MEDS: Gabapentin 300 MG CAP PO SCH ×3 (09:36→20:29)
[2022-03-10] MEDS: Famotidine 20 MG TAB PER TUBE SCH ×2 (09:36→20:29)
[2022-03-10] MEDS: lamoTRIgine 25 MG TAB PO SCH ×2 (09:37→20:29)
[2022-03-10] MEDS: OLANZapine 5 MG TAB PO SCH (12:33)
[2022-03-10] MEDS: Ondansetron PF 4 MG/2 ML Vial IVP PRN (16:32)
[2022-03-10] MEDS: Mirtazapine 15 MG Soltab PO SCH (20:29)
[2022-03-11] MEDS: Metoclopramide HCl 10 MG/2 ML VIAL IVP SCH ×3 (01:39→16:54)
[2022-03-11] MEDS: Ibuprofen 200 MG TAB PO SCH ×4 (04:33→22:20)
[2022-03-11] MEDS: Ampicillin/Sulbactam 3 GM in Sodium Chloride 0.9% 100 ML IVPB SCH ×4 (04:33→22:21)
[2022-03-11 05:45] LABS: #Basophils 0.1 thou/uL (0.0-0.2); #Eosinphils 0.4 thou/uL (0.0-0.7); #Lymphocytes 2.2 thou/uL (1.20-3.40); #Monocytes 0.7 thou/uL (0.11-0.59); #Neutrophils 3.4 thou/uL (1.40-6.50); %Basophils 0.8 % (0.0-1.0); %Eosinophils 6.3 % (0.0-10.0); %Lymphocytes 31.7 % (21.0-51.0); %Monocytes 10.9 % (0.0-10.0); %Neutrophils 50.3 % (42.0-75.0); Hemoglobin 11.8 g/dL (14.0-18.0); Mean Corpuscular HGB CONC 32.6 g/dL (32.0-36.0); Mean Corpuscular Hemoglobin 30.1 pg (27.0-31.0); Mean Corpuscular Volume 92.5 fl (78.0-98.0); Mean Platelet Volume 7.1 fL (7.4-10.4); Platelet Count 263 thou/uL (130-400); RBC Distribution Width 11.8 % (11.5-14.5); Red Blood Cell (RBC) Count 3.91 mill/uL (4.70-6.10); White Blood Cell (WBC) Count 6.8 thou/uL (4.8-10.8)
[2022-03-11 06:05] LABS: Phosphorus 4.8 mg/dL (2.3-4.7)
[2022-03-11 06:08] LABS: Anion Gap 12 mmol/L (10-20); BUN (Urea Nitrogen) 14 mg/dL (8.9-20.6); Calc. Creatinine Clearance 154 mL/min (70-130); Calcium 8.9 mg/dL (7.8-10.44); Carbon Dioxide 27 mmol/L (22-29); Chloride 105 mmol/L (98-107); Estimated GFR 125; Glucose 98 mg/dL (70-105); Magnesium 2.1 mg/dL (1.6-2.6); Potassium 3.9 mmol/L (3.5-5.1); Sodium 140 mmol/L (136-145)
[2022-03-11] MEDS: traMADol HCl 50 MG TAB PO SCH ×3 (06:22→17:46)
[2022-03-11] MEDS: cloNIDine 0.1 MG TAB PO SCH ×3 (06:22→17:45)
[2022-03-11] MEDS: Acetaminophen 650 MG/20.3 ML UDCUP PER TUBE SCH ×3 (06:22→17:46)
[2022-03-11] MEDS: Enoxaparin Sodium 40 MG/0.4 ML SYRINGE SC SCH (08:17)
[2022-03-11] MEDS: Polyethylene Glycol 3350 17 GM Packet PO SCH (08:17)
[2022-03-11] MEDS: lamoTRIgine 25 MG TAB PO SCH ×2 (08:17→22:21)
[2022-03-11] MEDS: Senokot S 8.6-50 MG TAB PO SCH ×2 (08:18→22:21)
[2022-03-11] MEDS: Gabapentin 300 MG CAP PO SCH ×3 (08:18→22:20)
[2022-03-11] MEDS: Venlafaxine 75 MG TAB PO SCH ×2 (08:18→22:21)
[2022-03-11] MEDS: Famotidine 20 MG TAB PER TUBE SCH ×2 (08:19→22:22)
[2022-03-11] MEDS: Bacitracin 1 PK TOP SCH ×3 (08:19→22:20)
[2022-03-11] MEDS: OLANZapine 5 MG TAB PO SCH (11:08)
[2022-03-11] MEDS: fentaNYL 100 mcg/hour Patch TD SCH (12:06)
[2022-03-11] MEDS: Mirtazapine 15 MG Soltab PO SCH (22:22)
[2022-03-12] MEDS: Acetaminophen 650 MG/20.3 ML UDCUP PER TUBE SCH ×5 (00:30→23:02)
[2022-03-12] MEDS: cloNIDine 0.1 MG TAB PO SCH ×4 (00:31→17:40)
[2022-03-12] MEDS: traMADol HCl 50 MG TAB PO SCH ×5 (00:31→23:03)
[2022-03-12] MEDS: Metoclopramide HCl 10 MG/2 ML VIAL IVP SCH ×4 (01:06→23:03)
[2022-03-12 04:11] LABS: #Basophils 0.1 thou/uL (0.0-0.2); #Eosinphils 0.6 thou/uL (0.0-0.7); #Lymphocytes 2.5 thou/uL (1.20-3.40); #Monocytes 0.7 thou/uL (0.11-0.59); #Neutrophils 3.4 thou/uL (1.40-6.50); %Basophils 1.5 % (0.0-1.0); %Eosinophils 8.2 % (0.0-10.0); %Lymphocytes 34.5 % (21.0-51.0); %Monocytes 9.3 % (0.0-10.0); %Neutrophils 46.5 % (42.0-75.0); Hemoglobin 12.3 g/dL (14.0-18.0); Mean Corpuscular Hemoglobin 30.3 pg (27.0-31.0); Mean Corpuscular Volume 91.7 fl (78.0-98.0); Mean Platelet Volume 6.8 fL (7.4-10.4); Platelet Count 295 thou/uL (130-400); Red Blood Cell (RBC) Count 4.08 mill/uL (4.70-6.10); White Blood Cell (WBC) Count 7.2 thou/uL (4.8-10.8)
[2022-03-12] MEDS: Ampicillin/Sulbactam 3 GM in Sodium Chloride 0.9% 100 ML IVPB SCH ×4 (05:01→21:18)
[2022-03-12] MEDS: Ibuprofen 200 MG TAB PO SCH ×4 (05:04→21:23)
[2022-03-12 05:36] LABS: Anion Gap 12 mmol/L (10-20); BUN (Urea Nitrogen) 20 mg/dL (8.9-20.6); Calc. Creatinine Clearance 151 mL/min (70-130); Calcium 9.4 mg/dL (7.8-10.44); Carbon Dioxide 28 mmol/L (22-29); Chloride 104 mmol/L (98-107); Estimated GFR 124; Glucose 117 mg/dL (70-105); Sodium 140 mmol/L (136-145)
[2022-03-12] MEDS: Enoxaparin Sodium 40 MG/0.4 ML SYRINGE SC SCH (09:22)
[2022-03-12] MEDS: Polyethylene Glycol 3350 17 GM Packet PO SCH (09:22)
[2022-03-12] MEDS: Famotidine 20 MG TAB PER TUBE SCH ×2 (09:23→21:18)
[2022-03-12] MEDS: Senokot S 8.6-50 MG TAB PO SCH ×2 (09:23→21:17)
[2022-03-12] MEDS: lamoTRIgine 25 MG TAB PO SCH ×2 (09:23→21:18)
[2022-03-12] MEDS: Gabapentin 300 MG CAP PO SCH ×3 (09:24→21:17)
[2022-03-12] MEDS: Bacitracin 1 PK TOP SCH ×3 (09:24→21:18)
[2022-03-12] MEDS: Venlafaxine 75 MG TAB PO SCH ×2 (09:24→21:17)
[2022-03-12] MEDS: OLANZapine 5 MG TAB PO SCH (12:13)
[2022-03-12] MEDS ORDERED: fentaNYL 100 mcg/hour Patch TD SCH (12:49)
[2022-03-12] MEDS: Mirtazapine 15 MG Soltab PO SCH (21:18)
[2022-03-13] MEDS: cloNIDine 0.1 MG TAB PO SCH ×2 (00:02→05:46)
[2022-03-13] MEDS: Ampicillin/Sulbactam 3 GM in Sodium Chloride 0.9% 100 ML IVPB SCH ×4 (04:45→21:19)
[2022-03-13] MEDS: Ibuprofen 200 MG TAB PO SCH ×4 (04:45→21:00)
[2022-03-13] MEDS: Acetaminophen 650 MG/20.3 ML UDCUP PER TUBE SCH ×4 (05:46→23:41)
[2022-03-13] MEDS: traMADol HCl 50 MG TAB PO SCH ×4 (05:47→23:42)
[2022-03-13] MEDS: Bacitracin 1 PK TOP SCH ×3 (09:20→21:01)
[2022-03-13] MEDS: Polyethylene Glycol 3350 17 GM Packet PO SCH (09:20)
[2022-03-13] MEDS: Senokot S 8.6-50 MG TAB PO SCH ×2 (09:21→21:40)
[2022-03-13] MEDS: Enoxaparin Sodium 40 MG/0.4 ML SYRINGE SC SCH (09:21)
[2022-03-13] MEDS: Famotidine 20 MG TAB PER TUBE SCH ×2 (09:21→21:00)
[2022-03-13] MEDS: Metoclopramide HCl 10 MG/2 ML VIAL IVP SCH ×3 (09:22→23:42)
[2022-03-13] MEDS: lamoTRIgine 25 MG TAB PO SCH ×2 (09:22→20:59)
[2022-03-13] MEDS: Venlafaxine 75 MG TAB PO SCH ×2 (09:22→20:59)
[2022-03-13] MEDS: Gabapentin 300 MG CAP PO SCH ×3 (09:22→21:01)
[2022-03-13] MEDS: Dexamethasone 4 mg/ml Vial SLOW IVP SCH ×3 (11:49→23:42)
[2022-03-13] MEDS: OLANZapine 5 MG TAB PO SCH (11:49)
[2022-03-13] MEDS: Mirtazapine 15 MG Soltab PO SCH (21:00)
[2022-03-14] MEDS: Ampicillin/Sulbactam 3 GM in Sodium Chloride 0.9% 100 ML IVPB SCH ×5 (04:15→21:35)
[2022-03-14] MEDS: Acetaminophen 650 MG/20.3 ML UDCUP PER TUBE SCH ×3 (05:03→18:24)
[2022-03-14] MEDS: traMADol HCl 50 MG TAB PO SCH ×3 (05:04→18:24)
[2022-03-14] MEDS: Ibuprofen 200 MG TAB PO SCH ×4 (05:04→20:40)
[2022-03-14] MEDS: Gabapentin 300 MG CAP PO SCH ×3 (08:24→20:41)
[2022-03-14] MEDS: Venlafaxine 75 MG TAB PO SCH ×2 (08:24→20:39)
[2022-03-14] MEDS: Metoclopramide HCl 10 MG/2 ML VIAL IVP SCH ×2 (08:24→16:23)
[2022-03-14] MEDS: Bacitracin 1 PK TOP SCH ×3 (08:25→20:42)
[2022-03-14] MEDS: lamoTRIgine 25 MG TAB PO SCH ×2 (08:25→20:39)
[2022-03-14] MEDS: Polyethylene Glycol 3350 17 GM Packet PO SCH (08:25)
[2022-03-14] MEDS: Enoxaparin Sodium 40 MG/0.4 ML SYRINGE SC SCH (08:25)
[2022-03-14] MEDS: Famotidine 20 MG TAB PER TUBE SCH ×2 (08:25→20:39)
[2022-03-14] MEDS: Senokot S 8.6-50 MG TAB PO SCH ×2 (08:25→20:40)
[2022-03-14] MEDS: OLANZapine 5 MG TAB PO SCH (10:52)
[2022-03-14] MEDS: Mirtazapine 15 MG Soltab PO SCH (21:21)
[2022-03-15] MEDS: Metoclopramide HCl 10 MG/2 ML VIAL IVP SCH ×2 (00:14→11:23)
[2022-03-15] MEDS: Acetaminophen 650 MG/20.3 ML UDCUP PER TUBE SCH ×6 (00:15→21:47)
[2022-03-15] MEDS: traMADol HCl 50 MG TAB PO SCH ×2 (00:15→05:08)
[2022-03-15] MEDS: Ampicillin/Sulbactam 3 GM in Sodium Chloride 0.9% 100 ML IVPB SCH ×4 (04:06→21:48)
[2022-03-15] MEDS: Ibuprofen 200 MG TAB PO SCH (05:08)
[2022-03-15] MEDS ORDERED: traMADol HCl 50 MG TAB PO PRN ×2 (07:52→13:50)
[2022-03-15] MEDS ORDERED: Ibuprofen 200 MG TAB PO PRN (07:53)
[2022-03-15] MEDS: Gabapentin 300 MG CAP PO SCH ×3 (08:27→21:46)
[2022-03-15] MEDS: Enoxaparin Sodium 40 MG/0.4 ML SYRINGE SC SCH (08:27)
[2022-03-15] MEDS: Bacitracin 1 PK TOP SCH ×3 (08:28→21:46)
[2022-03-15] MEDS: lamoTRIgine 25 MG TAB PO SCH ×2 (08:28→21:47)
[2022-03-15] MEDS: Famotidine 20 MG TAB PER TUBE SCH ×2 (08:28→21:47)
[2022-03-15] MEDS: Senokot S 8.6-50 MG TAB PO SCH ×2 (08:29→21:46)
[2022-03-15] MEDS: Polyethylene Glycol 3350 17 GM Packet PO SCH (08:29)
[2022-03-15] MEDS: Venlafaxine 75 MG TAB PO SCH ×2 (08:30→21:47)
[2022-03-15] MEDS ORDERED: traMADol HCl 50 MG TAB PO SCH (12:00)
[2022-03-15] MEDS ORDERED: Melatonin 3 MG TAB PO SCH (21:00)
[2022-03-15] MEDS: Melatonin 3 MG TAB PO SCH (21:46)
[2022-03-15] MEDS: Mirtazapine 15 MG Soltab PO SCH (21:48)
[2022-03-16] MEDS: Ampicillin/Sulbactam 3 GM in Sodium Chloride 0.9% 100 ML IVPB SCH ×2 (03:42→09:49)
[2022-03-16] MEDS: Acetaminophen 650 MG/20.3 ML UDCUP PER TUBE SCH ×4 (09:33→20:17)
[2022-03-16] MEDS: Gabapentin 300 MG CAP PO SCH ×3 (09:34→20:17)
[2022-03-16] MEDS: lamoTRIgine 25 MG TAB PO SCH ×2 (09:34→20:18)
[2022-03-16] MEDS: Bacitracin 1 PK TOP SCH ×3 (09:34→20:18)
[2022-03-16] MEDS: Famotidine 20 MG TAB PER TUBE SCH ×2 (09:34→20:18)
[2022-03-16] MEDS: Enoxaparin Sodium 40 MG/0.4 ML SYRINGE SC SCH (09:34)
[2022-03-16] MEDS: Venlafaxine 75 MG TAB PO SCH ×2 (09:35→20:17)
[2022-03-16 09:36] LABS: #Basophils 0.2 thou/uL (0.0-0.2); #Eosinphils 0.5 thou/uL (0.0-0.7); #Lymphocytes 3.4 thou/uL (1.20-3.40); #Monocytes 0.9 thou/uL (0.11-0.59); %Basophils 1.2 % (0.0-1.0); %Eosinophils 3.6 % (0.0-10.0); %Lymphocytes 26.1 % (21.0-51.0); %Monocytes 6.7 % (0.0-10.0); %Neutrophils 62.4 % (42.0-75.0); Hemoglobin 15.6 g/dL (14.0-18.0); Mean Corpuscular HGB CONC 33.1 g/dL (32.0-36.0); Mean Corpuscular Hemoglobin 31.1 pg (27.0-31.0); Mean Platelet Volume 6.3 fL (7.4-10.4); Platelet Count 674 10x3/uL (130-400); RBC Distribution Width 12.4 % (11.5-14.5); Red Blood Cell (RBC) Count 5.01 mill/uL (4.70-6.10); White Blood Cell (WBC) Count 12.9 10x3/uL (4.8-10.8)
[2022-03-16] MEDS: Senokot S 8.6-50 MG TAB PO SCH ×2 (09:37→20:19)
[2022-03-16] MEDS: Polyethylene Glycol 3350 17 GM Packet PO SCH (09:37)
[2022-03-16] MEDS: ALPRAZolam 1 MG TAB PO PRN ×2 (12:28→20:18)
[2022-03-16 15:04] LABS: Bilirubin Negative (Negative); Blood, Urine Negative (Negative); Clarity Clear (Clear); Glucose, Urine (Dipstick) Normal (Negative); Ketone, Urine Negative (Negative); Leukocyte Negative Leu/uL (Negative); Nitrite Negative (Negative); Protein, Urine (Dipstick) 10 mg/dL (Neg-Trace); Specific Gravity, Urine 1.033 (1.002-1.036); Squamous Epithelial None Seen HPF (0-3); Urobilinogen Normal mg/dL (Less than 2)
[2022-03-16 15:16] LABS: Bacteria/HPF None Seen HPF (None Seen); RBC/HPF None Seen HPF (0-3); WBC/HPF 0-3 HPF (0-3)
[2022-03-16 15:17] LABS: Sperm/HPF 2+ HPF (None Seen)
[2022-03-16 15:18] LABS: Urine Culture Reflex No No
[2022-03-16] MEDS ORDERED: Vancomycin 1.5 GRAM/300 ML BAG 1.5 GM in Premix Bag 1 BAG IVPB SCH (18:00)
[2022-03-16] MEDS: Melatonin 3 MG TAB PO SCH (20:18)
[2022-03-16] MEDS: Mirtazapine 15 MG Soltab PO SCH (20:19)
[2022-03-16] MEDS ORDERED: VANCOMYCIN 2 GRAM/500 ML BAG 2 GM in Premix Bag 1 BAG IVPB SCH (21:00)
[2022-03-17] MEDS: Vancomycin 1.5 GRAM/300 ML BAG 1.5 GM in Premix Bag 1 BAG IVPB SCH ×3 (01:57→17:49)
[2022-03-17] MEDS: ALPRAZolam 1 MG TAB PO PRN ×3 (04:48→20:47)
[2022-03-17 06:18] LABS: #Basophils 0.1 thou/uL (0.0-0.2); #Eosinphils 0.6 thou/uL (0.0-0.7); #Lymphocytes 2.8 thou/uL (1.20-3.40); #Monocytes 0.8 thou/uL (0.11-0.59); #Neutrophils 5.5 thou/uL (1.40-6.50); %Basophils 1.1 % (0.0-1.0); %Lymphocytes 28.4 % (21.0-51.0); %Monocytes 8.5 % (0.0-10.0); Hemoglobin 13.1 g/dL (14.0-18.0); Mean Corpuscular HGB CONC 31.6 g/dL (32.0-36.0); Mean Corpuscular Hemoglobin 29.3 pg (27.0-31.0); Mean Corpuscular Volume 92.9 fl (78.0-98.0); Mean Platelet Volume 6.6 fL (7.4-10.4); Platelet Count 435 10x3/uL (130-400); RBC Distribution Width 12.4 % (11.5-14.5); Red Blood Cell (RBC) Count 4.48 mill/uL (4.70-6.10); White Blood Cell (WBC) Count 9.8 10x3/uL (4.8-10.8)
[2022-03-17 06:28] LABS: Anion Gap 14 mmol/L (10-20); BUN (Urea Nitrogen) 25 mg/dL (8.9-20.6); Calc. Creatinine Clearance 138 mL/min (70-130); Calcium 9.8 mg/dL (7.8-10.44); Carbon Dioxide 27 mmol/L (22-29); Chloride 103 mmol/L (98-107); Estimated GFR 122; Glucose 102 mg/dL (70-105); Magnesium 2.2 mg/dL (1.6-2.6); Phosphorus 4.4 mg/dL (2.3-4.7); Potassium 4.9 mmol/L (3.5-5.1); Sodium 139 mmol/L (136-145)
[2022-03-17] MEDS: Enoxaparin Sodium 40 MG/0.4 ML SYRINGE SC SCH (09:39)
[2022-03-17] MEDS: Gabapentin 300 MG CAP PO SCH ×3 (09:39→20:47)
[2022-03-17] MEDS: lamoTRIgine 25 MG TAB PO SCH ×2 (09:39→20:47)
[2022-03-17] MEDS: Famotidine 20 MG TAB PER TUBE SCH ×2 (09:39→20:47)
[2022-03-17] MEDS: Bacitracin 1 PK TOP SCH ×3 (09:39→20:47)
[2022-03-17] MEDS: Venlafaxine 75 MG TAB PO SCH ×2 (09:39→20:47)
[2022-03-17] MEDS: Acetaminophen 650 MG/20.3 ML UDCUP PER TUBE SCH ×4 (09:40→20:46)
[2022-03-17] MEDS: Polyethylene Glycol 3350 17 GM Packet PO SCH (10:01)
[2022-03-17] MEDS: Senokot S 8.6-50 MG TAB PO SCH ×2 (10:01→20:48)
[2022-03-17 18:11] LABS: Vancomycin, Trough 22.2 ug/mL
[2022-03-17] MEDS: Melatonin 3 MG TAB PO SCH (20:47)
[2022-03-17] MEDS: Mirtazapine 15 MG Soltab PO SCH (20:47)
[2022-03-18] MEDS ORDERED: VANCOMYCIN 1.25 GM/250 ML BAG 1.25 GM in Premix Bag 1 BAG IVPB SCH (02:00)
[2022-03-18 06:42] LABS: #Basophils 0.1 thou/uL (0.0-0.2); #Eosinphils 0.5 thou/uL (0.0-0.7); #Lymphocytes 2.5 thou/uL (1.20-3.40); #Monocytes 0.6 thou/uL (0.11-0.59); #Neutrophils 3.5 thou/uL (1.40-6.50); %Basophils 1.6 % (0.0-1.0); %Eosinophils 7.1 % (0.0-10.0); %Lymphocytes 34.6 % (21.0-51.0); %Monocytes 7.9 % (0.0-10.0); %Neutrophils 48.8 % (42.0-75.0); Hemoglobin 13.4 g/dL (14.0-18.0); Mean Corpuscular HGB CONC 31.7 g/dL (32.0-36.0); Mean Corpuscular Volume 94.7 fl (78.0-98.0); Platelet Count 450 10x3/uL (130-400); RBC Distribution Width 12.2 % (11.5-14.5); Red Blood Cell (RBC) Count 4.45 mill/uL (4.70-6.10); White Blood Cell (WBC) Count 7.3 10x3/uL (4.8-10.8)
[2022-03-18 07:02] LABS: Anion Gap 12 mmol/L (10-20); BUN (Urea Nitrogen) 23 mg/dL (8.9-20.6); Calc. Creatinine Clearance 142 mL/min (70-130); Calcium 9.4 mg/dL (7.8-10.44); Carbon Dioxide 27 mmol/L (22-29); Chloride 104 mmol/L (98-107); Estimated GFR 123; Glucose 99 mg/dL (70-105); Magnesium 2.2 mg/dL (1.6-2.6); Phosphorus 4.1 mg/dL (2.3-4.7); Potassium 4.1 mmol/L (3.5-5.1); Sodium 139 mmol/L (136-145)
[2022-03-18] MEDS: Famotidine 20 MG TAB PER TUBE SCH (08:42)
[2022-03-18] MEDS: Gabapentin 300 MG CAP PO SCH (08:42)
[2022-03-18] MEDS: lamoTRIgine 25 MG TAB PO SCH (08:42)
[2022-03-18] MEDS: Acetaminophen 650 MG/20.3 ML UDCUP PER TUBE SCH ×2 (08:43→12:47)
[2022-03-18] MEDS: Bacitracin 1 PK TOP SCH (08:43)
[2022-03-18] MEDS: ALPRAZolam 1 MG TAB PO PRN (08:43)
[2022-03-18] MEDS: Venlafaxine 75 MG TAB PO SCH (08:43)
[2022-03-18] MEDS: Polyethylene Glycol 3350 17 GM Packet PO SCH (08:44)
[2022-03-18] MEDS: Senokot S 8.6-50 MG TAB PO SCH (08:44)
[2022-03-18] MEDS: Enoxaparin Sodium 40 MG/0.4 ML SYRINGE SC SCH (08:44)
[2022-03-18 12:37] VITALS: BP 114/78; TEMP 97.7
== END 2022-03-18 16:15 | disposition home or self-care (01) | DRG 3 ==
LOC: ERS 09:11 → CCU 10:23 → EEVIPCON 10:23 → IMCU/EMU 03-12 02:13 → SURG B 03-13 13:56
PROVIDERS: ADMIT Surgery; ATTEND Surgery
PROC: 5A1955Z Respiratory Ventilation, Greater than 96 Consecutive Hours (ICD-10-PCS; 2022-03-03)
PROC: 0BH Respiratory System, Insertion (ICD-10-PCS; 2022-03-03)
PROC: 5A1935Z Respiratory Ventilation, Less than 24 Consecutive Hours (ICD-10-PCS; 2022-03-03)
PROC: 0DH67UZ Insertion of Feeding Device into Stomach, Via Natural or Artificial Opening (ICD-10-PCS; 2022-03-03)
PROC: 3E0G76Z Introduction of Nutritional Substance into Upper GI, Via Natural or Artificial Opening (ICD-10-PCS; 2022-03-03)
PROC: 0B110F4 Bypass Trachea to Cutaneous with Tracheostomy Device, Open Approach (ICD-10-PCS; principal; 2022-03-05)
PROC: 0WC Anatomical Regions, General, Extirpation (ICD-10-PCS; 2022-03-05)
PROC: 0DH63UZ Insertion of Feeding Device into Stomach, Percutaneous Approach (ICD-10-PCS; 2022-03-05)
PROC: 3E0G76Z Introduction of Nutritional Substance into Upper GI, Via Natural or Artificial Opening (ICD-10-PCS; 2022-03-05)
PROC: 0NST34Z Reposition Right Mandible with Internal Fixation Device, Percutaneous Approach (ICD-10-PCS; 2022-03-05)
PROC: 0JC40ZZ Extirpation of Matter from Right Neck Subcutaneous Tissue and Fascia, Open Approach (ICD-10-PCS; 2022-03-05)
DX: S11.23XA Puncture wound without foreign body of pharynx and cervical esophagus, initial encounter (principal); S12.8XXA Fracture of other parts of neck, initial encounter; G93.41 Metabolic encephalopathy; J96.00 Acute respiratory failure, unspecified whether with hypoxia or hypercapnia; J69.0 Pneumonitis due to inhalation of food and vomit; S02.651A Fracture of angle of right mandible, initial encounter for closed fracture; T79.7XXA Traumatic subcutaneous emphysema, initial encounter; E87.3 Alkalosis; G83.9 Paralytic syndrome, unspecified; R40.2432 Glasgow coma scale score 3-8, at arrival to emergency department; F11.10 Opioid abuse, uncomplicated; F12.10 Cannabis abuse, uncomplicated; F15.10 Other stimulant abuse, uncomplicated; F14.10 Cocaine abuse, uncomplicated; R13.12 Dysphagia, oropharyngeal phase; Z20.822 Contact with and (suspected) exposure to COVID-19; W34.09XA Accidental discharge from other specified firearms, initial encounter; Y93.89 Activity, other specified; Y92.009 Unspecified place in unspecified non-institutional (private) residence as the place of occurrence of the external cause; Z79.899 Other long term (current) drug therapy; Z88.8 Allergy status to other drugs, medicaments and biological substances; Z78.1 Physical restraint status
CPT/HCPCS: 31500; 36415; 36416; 36600; 70450; 70486; 70498; 71045; 72125; 74230; 76377; 80048; 80053; 80202; 80306; 80307; 81001; 82805; 83605; 83735; 84100; 85025; 85520; 85610; 85730; 86850; 86900; 86901; 87040; 87070; 87205; 87811; 90471; 90715; 93970; 94002; 94003; 94640; 96361; 96365; 96375; C1889; G0390; J0295; J1100; J1650; J1940; J1956; J2001; J2250; J2405; J2704; J2765; J3010; J3370; J3475; J3480; J3490; J7050; J7120; J7620; P9045; Q9967; S0028; U0003; U0005